=== PATIENT | male | born 1970 | race Caucasian/White ===

== ENCOUNTER 2016-11-04 15:25 | Emergency (ER) | payer OTHER ==
[2016-11-04] MEDS ORDERED: Cyclobenzaprine TAB* 10 MG PO ONE (16:22)
[2016-11-04] MEDS ORDERED: Ketorolac INJ* 60 MG/2 ML VIAL IM ONE (16:22)
--- NOTE | 2016-11-04 17:01 | ED ---
Back Pain - HPI Summary HPI Summary: Patient presents with low back pain after he felt a spasm when he bent over to tie his shoe. He has a history of ruptured discs and worried he might have done this again, although he denies feeling an actual pop like he had with the previous event. The pain he felt was severe and he didn't think he could walk. He was able to get to the bed and lay down, but this did not help his pain. He took 400mg of ibuprofen without relief. He denies N/T, or incontinence of urine or stool. - History of Current Complaint Chief Complaint: EDBackInjuryPain Stated Complaint: BACK PAIN Time Seen by Provider: 11/04/16 16:11 Hx Obtained From: Patient, Family/Hog Cutter Onset/Duration: Sudden Onset Onset/Duration: Started Hours Ago Timing: Constant Back Pain Location: Is Discrete @ - low back Severity Initially: Severe Severity Currently: Mild Pain Intensity: 3 Character: Aching, Spasmodic Aggravating Symptom(s): Movement Alleviating Symptom(s): Rest Associated Signs And Symptoms: Positive: Pain with Weight Bearing Related History: Previous Back Injury - Allergies/Home Medications Allergies/Adverse Reactions: Allergies Allergy/AdvReac Type Severity Reaction Status Date / Time No Known Allergies Allergy Verified 11/04/16 16:54 PMH/Surg Hx/FS Hx/Imm Hx Musculoskeletal History: Reports: Hx Back Problems Infectious Disease History: No Infectious Disease History: Denies: Traveled Outside the [place] in Last 30 Days - Family History Known Family History: Positive: None - Social History Occupation: Employed Full-time Lives: With Family Alcohol Use: Daily Substance Use Type: Reports: None Smoking Status (MU): Never Smoked Tobacco Review of Systems Positive: Myalgia. Negative: Decreased ROM, Edema Negative: Bruising Negative: Weakness, Paresthesia, Numbness All Other Systems Reviewed And Are Negative: Yes Physical Exam Triage Information Reviewed: Yes Vital Signs On Initial Exam: Initial Vitals BP 143/77 11/04/16 15:33 Vital Signs Reviewed: Yes Appearance: Positive: Well-Appearing, Pain Distress, Obese Skin: Positive: Warm, Skin Color Reflects Adequate Perfusion, Dry, Soft Head/Face: Positive: Normal Head/Face Inspection Eyes: Positive: EOMI, MAXWELL, Conjunctiva Clear Neck: Positive: Supple, Nontender Respiratory/Lung Sounds: Positive: Breath Sounds Present Cardiovascular: Positive: RRR Abdomen Description: Positive: Nontender, Soft Musculoskeletal: Positive: Strength/ROM Intact - patient's pain had decreased significantly by the time of exam, Pain @ - mildy +left SLR. Negative: Edema Left, Edema Right Neurological: Positive: Sensory/Motor Intact, Alert, Oriented to Person Place, Time, NV Bundle Intact Distally, Normal Gait Psychiatric: Positive: Affect/Mood Appropriate AVPU Assessment: Alert - Teresa Coma Scale Coma Scale Total: 15 Diagnostics - Vital Signs Vital Signs Temp Pulse Resp BP Pulse Ox 11/04/16 15:55 98.3 F 84 18 143/77 95 11/04/16 15:46 98.3 F 84 18 143/77 95 11/04/16 15:39 98.3 F 84 18 143/77 95 11/04/16 15:35 92 95 11/04/16 15:33 143/77 - Laboratory Lab Statement: Any lab studies that have been ordered have been reviewed, and results considered in the medical decision making process. Re-Evaluation - Re-Evaluation First Eval Re-Evaluation Time: 17:30 Change: Improved Comment: Patient is very comfortable and moving easily Back Pain Course/Dx - Course Course Of Treatment: Patient had improved signigicantly by discharge, therefore he will use medication as needed and f/u with his PCP if symptoms persist. - Diagnoses Differential Diagnosis/HQI/PQRI: Positive: Aneurysm, Arthritis, Compressive Cord Syndrome, Herniated Disc, Osteoporosis, Strain, Sprain Provider Diagnoses: Low back strain Discharge - Discharge Plan Condition: Stable Disposition: HOME Prescriptions: Cyclobenzaprine TAB* [Flexeril 10 MG TAB*] 10 mg PO TID PRN #12 tab PRN Reason: Spasms Patient Education Materials: Back Pain (ED) Referrals: Fazal Lockhart MD [Primary Care Provider] - Additional Instructions: You can begin using Ibuprofen 600mg three times daily with meals tomorrow afternoon, for the next 2-3 days. Add the muscle relaxer as needed for any uncontrolled pain. Use ice or heat as needed, and rest your back. Follow-up with your primary care provider if your symptoms do not improve, since you may need further evaluation. Return to the emergency department if symptoms worsen.
[2016-11-04 17:02] VITALS: BP 125/65
== END 2016-11-04 17:44 | disposition home or self-care (01) ==
LOC: ED 15:25
DX: S39.012A Strain of muscle, fascia and tendon of lower back, initial encounter (principal); M54.5 Low back pain; X58.XXXA Exposure to other specified factors, initial encounter; Y93.9 Activity, unspecified; Y92.9 Unspecified place or not applicable
CPT/HCPCS: 96372; 99283; A9270-GY; J1885

== ENCOUNTER 2019-01-23 07:10 | Emergency (ER) | payer OTHER ==
[2019-01-23 07:21] VITALS: BP 145/89
--- NOTE | 2019-01-23 07:43 | ED ---
Skin Complaint - HPI Summary HPI Summary: 48 yr old male with the complaint of bulls eye rash to the right medial thigh area. He just noticed this this morning. He does not recall a tick bite. He feels fine otherwise. He has no other complaints. - History of Current Complaint Chief Complaint: UCSkin Time Seen by Provider: 01/23/19 07:19 Stated Complaint: TICK BITE BACK OF RT LEG Pain Intensity: 0 - Allergy/Home Medications Allergies/Adverse Reactions: Allergies Allergy/AdvReac Type Severity Reaction Status Date / Time No Known Allergies Allergy Verified 01/23/19 07:15 PMH/Surg Hx/FS Hx/Imm Hx Endocrine/Hematology History: Denies: Hx Diabetes Cardiovascular History: Denies: Hx Hypertension, Hx Pacemaker/ICD History: Denies: Hx Renal Disease Musculoskeletal History: Reports: Hx Back Problems Sensory History: Denies: Hx Hearing Aid Psychiatric History: Denies: Hx Panic Disorder - Surgical History Surgery Procedure, Year, and Place: [facility]SP SURGERY RUPTURED DISC 2003 Infectious Disease History: No Infectious Disease History: Denies: Traveled Outside the in Last 30 Days - Family History Known Family History: Positive: None - Social History Occupation: Employed Full-time Alcohol Use: Daily Substance Use Type: Reports: None Smoking Status (MU): Never Smoked Tobacco Review of Systems Constitutional: Negative Positive: Other - bulls eye rash right thigh All Other Systems Reviewed And Are Negative: Yes Physical Exam Triage Information Reviewed: Yes Vital Signs On Initial Exam: Initial Vitals Temp Pulse Resp BP Pulse Ox 98.4 F 72 18 145/89 100 01/23/19 07:15 01/23/19 07:15 01/23/19 07:15 01/23/19 07:15 01/23/19 07:15 Vital Signs Reviewed: Yes Appearance: Positive: Well-Appearing, No Pain Distress Skin: Positive: Other - there is a bulls eye rash right thigh about 3 inches in diameter. Slight induration. There appears to be a tick like bite in the center. Head/Face: Positive: Normal Head/Face Inspection Eyes: Positive: EOMI ENT: Positive: Normal ENT inspection Neck: Positive: Nontender Respiratory/Lung Sounds: Positive: Clear to Auscultation, Breath Sounds Present Cardiovascular: Positive: RRR. Negative: Murmur, Rub Abdomen Description: Negative: Distended Musculoskeletal: Positive: Strength/ROM Intact Neurological: Positive: Sensory/Motor Intact, Alert, Oriented to Person Place, Time, CN Intact II-III, Normal Gait, Speech Normal Psychiatric: Positive: Normal Diagnostics - Vital Signs Vital Signs Temp Pulse Resp BP Pulse Ox 01/23/19 07:15 98.4 F 72 18 145/89 100 - Laboratory Lab Statement: Any lab studies that have been ordered have been reviewed, and results considered in the medical decision making process. Course/Dx - Course Course Of Treatment: 48 yr old with bulls eye rash. Rx with doxy for 21 days, and he knows to follow up with his primary care doctor as soon as possible to be followed for this. - Diagnoses Provider Diagnoses: Erythema migrans (Lyme disease), Hypertension Discharge - Sign-Out/Discharge Documenting (check all that apply): Patient Departure All imaging exams completed and their final reports reviewed: No Studies - Discharge Plan Condition: Good Disposition: HOME Prescriptions: Doxycycline Monohydrate 100 mg PO BID #42 capsule Patient Education Materials: Lyme Disease (ED), Hypertension (ED) Referrals: Fazal Lockhart MD [Primary Care Provider] - 2 Days - Billing Disposition and Condition Condition: GOOD Disposition: Home
== END 2019-01-23 07:57 | disposition home or self-care (01) ==
LOC: UCEAST 07:10
DX: A26.0 Cutaneous erysipeloid (principal); I10 Essential (primary) hypertension
CPT/HCPCS: 99212; G0463